=== PATIENT | male | born 1955 | race Caucasian/White ===

== ENCOUNTER → 2017-08-25 | Outpatient (CLI) | payer OTHER ==
--- NOTE | 2017-08-25 11:53 | RAD ---
Left knee, 3 views, 08/25/2017: History: Knee pain, injury No fracture or dislocation is identified. There is mild spurring at the patellofemoral articulation. No joint effusion is evident. IMPRESSION: No acute bony abnormality is detected.
== END | disposition home or self-care (01) ==
LOC: DXRADRC 10:47
PROVIDERS: ATTEND Physician Assistant Medical
DX: M25.562 Pain in left knee (principal); M25.862 Other specified joint disorders, left knee
CPT/HCPCS: 73562

== ENCOUNTER → 2019-02-15 | Outpatient (CLI) | payer OTHER ==
[~2019-02-15] MED LIST: IOHEXOL 240 MG/ML 50ML VIAL. ONE; IOHEXOL 300 MG/ML 75 ML VIAL. IV ONE
[2019-02-15 08:36] LABS: CREATININE 0.9 mg/dL (0.7-1.3); GFR 85.8
--- NOTE | 2019-02-15 12:34 | RAD ---
PQRS Compliance Statement: One or more of the following individualized dose reduction techniques were utilized for this examination: 1. Automated exposure control 2. Adjustment of the mA and/or kV according to patient size 3. Use of iterative reconstruction technique CT ABD PELV W/ORAL IV CONTRAST Clinical Indication: RLQ ABD PAIN X SEVERAL MONTHS. HX HERNIA. Recent colonoscopy. Comparison: None. Technique: Helical CT imaging of the abdomen and pelvis is performed after 75 cc of Omnipaque 300 IV contrast. Oral contrast also given. Findings: Respiratory motion artifact. Lung bases are clear. Median sternotomy wires. Calcified right hilar lymph nodes. Cardiac size normal. There are a couple of calcified granulomas in the spleen. Cholecystectomy. There is fatty infiltration of the liver. There is a 6 mm hypodensity in segment 4A, too small to further characterize. Pancreas, adrenal glands, and abdominal aorta caliber are normal. There is a 9 mm calculus in the lower pole of the left kidney. There is no left hydronephrosis. There is a faint hyperdensity at the left ureteropelvic junction, coronal image 43. Finding could be a tiny calculus on the order 1-2 mm in size. There are approximately 3 nonobstructing calculi in the lower pole the right kidney, largest measures 6 mm. There is moderate right hydronephrosis secondary to a 13 x 8 mm calculus at the ureteropelvic junction, coronal image 44. There is no ureteral calculus. Stomach unremarkable. No dilated small bowel. Severe distal colon diverticulosis. There is no colon wall thickening. The appendix is normal. No colon wall thickening is identified. There is no abdominal adenopathy or free fluid. Urinary bladder is normal. Prostate and seminal vesicles are normal. No pelvic free fluid. Degenerative spondylosis of the thoracolumbar spine. There are large bridging endplate spurs at multiple levels, most exuberant anteriorly at L1-L2. IMPRESSION: 1. Moderate right hydronephrosis likely secondary to a 13 x 8 mm calculus at the ureteropelvic junction. 2. There is a faint hyperdensity at the left ureteropelvic junction that may be a tiny calculus. There is no left hydronephrosis. 3. Bilateral nonobstructing renal calculi. 4. Fatty infiltration of the liver. 5. Severe distal colon diverticulosis without diverticulitis. Electronically signed by: David Desai MD (02/15/2019 12:32 PM) [id number]
== END | disposition home or self-care (01) ==
LOC: CT 07:57
PROVIDERS: ATTEND Internal Medicine Gastroenterology
DX: K57.30 Diverticulosis of large intestine without perforation or abscess without bleeding (principal); K76.0 Fatty (change of) liver, not elsewhere classified; N13.2 Hydronephrosis with renal and ureteral calculous obstruction; D73.89 Other diseases of spleen; M47.815 Spondylosis without myelopathy or radiculopathy, thoracolumbar region; M46.06 Spinal enthesopathy, lumbar region; Z90.49 Acquired absence of other specified parts of digestive tract
CPT/HCPCS: 36415; 74177; 82565; 84520; Q9967

== ENCOUNTER → 2019-02-21 | Outpatient (CLI) | payer OTHER ==
--- NOTE | 2019-02-21 09:31 | CARD ---
MR#: [id number] Date of Study: 02/21/2019 Ordering Physician: EVIE PRICE, Referring Physician: EVIE PRICE, Tech: Donna Resendiz JENNIFER APPROVED REPORT EXAM: Two-dimensional and M-mode echocardiogram with Doppler and color Doppler. Other Information Quality : Technically LimitedHR: 70bpm Rhythm : NSRTechnically limited study due to body habitus. INDICATION CAD 2D DIMENSIONS RVDd3.5 (2.9-3.5cm)Left Atrium(2D)4.6 (1.6-4.0cm) IVSd1.5 (0.7-1.1cm)Aortic Root(2D)3.6 (2.0-3.7cm) LVDd4.3 (3.9-5.9cm)LVOT Diameter2.6 (1.8-2.4cm) PWd1.3 (0.7-1.1cm)LVDs3.1 (2.5-4.0cm) FS (%) 27.7 %SV45.6 ml LVEF(%)54.1 (>50%) Aortic Valve AoV Peak Srinath.146.9cm/sAoV VTI29.1cm AO Peak GR.8.6mmHgLVOT Peak Srinath.112.9cm/s LVOT VTI 26.80cmAO Mean GR.6mmHg HARVEY (VMAX)3.35bl4DEY (VTI)4.00cm2 Mitral Valve MV E Qflxhqrh26.3cm/sMV DECEL QTBC978xy MV A Cuwowtii50.9cm/sE/A Ratio0.8 MV A Esvjsaxz923au Pulmonary Valve PV Peak Eezghzag210.2cm/sPV Peak Grad.6mmHg Tricuspid Valve TR P. Ckllwudb793qa/sRAP SBPQTUYF2lxIr TR Peak Gr.39vkFkGQHM30eoAc LEFT VENTRICLE The left ventricle is normal size. There is mild to moderate concentric left ventricular hypertrophy. The left ventricular systolic function is normal. The Ejection Fraction is 55-60%. There is normal L V segmental wall motion. Transmitral Doppler flow pattern is Grade I-abnormal relaxation pattern. RIGHT VENTRICLE The right ventricle is normal size. There is normal right ventricular wall thickness. The right ventr icular systolic function is normal. ATRIA The left atrium is mildly dilated. The right atrium size is normal. The interatrial septum is intact with no evidence for an atrial septal defect or patent foramen ovale as noted on 2-D or Doppler imagi ng. AORTIC VALVE The aortic valve is normal in structure and function. The aortic valve is trileaflet. Doppler and Col or Flow revealed no significant aortic regurgitation. There is no significant aortic valvular stenosi s. There is no aortic valvular vegetation. MITRAL VALVE The mitral valve is normal in structure and function. There is no evidence of mitral valve prolapse. There is no mitral valve stenosis. Doppler and Color Flow revealed no mitral valve regurgitation note d. TRICUSPID VALVE The tricuspid valve is normal in structure and function. Doppler and Color Flow revealed trace tricus pid regurgitation. The PA pressure was estimated at 30 mmHg. There is no tricuspid valve prolapse or vegetation. There is no tricuspid valve stenosis. PULMONIC VALVE The pulmonic valve is not well visualized. GREAT VESSELS The aortic root is normal in size. The ascending aorta is normal in size. The IVC was not visualized. PERICARDIAL EFFUSION There is no evidence of significant pericardial effusion. Critical Notification Critical Value: No <Conclusion> The left ventricular systolic function is normal. The Ejection Fraction is 55-60%. There is normal LV segmental wall motion. Transmitral Doppler flow pattern is Grade I-abnormal relaxation pattern. Trace tricuspid regurgitation. The PA pressure was estimated at 30 mmHg. There is no evidence of significant pericardial effusion. Signed by : Martell Aquino, Electronically Approved : 02/21/2019 09:30:47
== END | disposition home or self-care (01) ==
LOC: ECHO 08:36
PROVIDERS: ATTEND Internal Medicine Cardiovascular Disease
DX: I25.10 Atherosclerotic heart disease of native coronary artery without angina pectoris (principal); I51.7 Cardiomegaly
CPT/HCPCS: 93306

== ENCOUNTER 2020-02-11 11:08 | Emergency (ER) | payer OTHER ==
[~2020-02-11] VITALS: Ht 175.3 cm; Wt 130.0 kg
[2020-02-11 11:15] VITALS: BP 148/64
[2020-02-11] MEDS ORDERED: MORPHINE SULFATE 4 MG/ML DISP.SYRIN. IM ONE (11:45)
--- NOTE | 2020-02-11 12:10 | RAD ---
Two-view lumbar spine and 3 views sacrum coccyx dated 02/11/2020. Comparison made to CT dated 02/15/2019. CLINICAL INDICATION: Pain after fall. FINDINGS: Flexion extension lateral views of the lumbar spine show normal sagittal alignment. No listhesis on the flexion-extension views. Moderate endplate hypertrophic changes throughout with multilevel disc space narrowing and anterior osteophyte formation. There are sclerotic change at the L2 vertebral body anteriorly, unchanged. Moderate arthrosis lower lumbar apophyseal joints. 3 view sacrum coccyx show normal bony alignment. No displaced fracture. Mild hypertrophic change of the bilateral SI joint without erosive changes or bone destruction. Mild degenerative change of the pubic symphysis. No definite fracture of the coccygeal tip. IMPRESSION: 1. No evidence of fracture or malalignment. 2. Moderate multilevel lumbar spondylosis. No evidence of listhesis on the flexion-extension views. Electronically signed by: Rodney Amin MD (02/11/2020 12:06 PM) [facility] [place]
[2020-02-11] MEDS ORDERED: HYDR-3165 PO (12:27)
--- NOTE | 2020-02-11 12:28 | PHYS DOC ---
Past History Past Medical History: CAD, Diabetes Past Surgical History: Cholecystectomy, Coronary Bypass Surgery Alcohol Use: Occasionally General Adult EDM: Chief Complaint: BACK PAIN OR INJURY HPI: HPI: Patient is a 64-year-old male who presented to ER today for evaluation of low back pain. Patient was trying to move a ladder yesterday, lost his balance and fell down on his buttock. Patient denies any head or neck injury, denies any bowel or bladder incontinence. Patient has history of low back problem. Patient said he could not sleep last night due to pain in his back and his tailbone area so he came here for evaluation. Review of Systems: Review of Systems: Constitutional: Denies fever or chills Eyes: Denies change in visual acuity HENT: Denies nasal congestion or sore throat Respiratory: Denies cough or shortness of breath Cardiovascular: Denies chest pain or edema GI: Denies abdominal pain, nausea, vomiting, bloody stools or diarrhea : Denies dysuria Musculoskeletal: Positive for lower back pain, no joint pain Integument: Denies rash Neurologic: Denies headache, focal weakness or sensory changes Endocrine: Denies polyuria or polydipsia Lymphatic: Denies swollen glands Psychiatric: Denies depression or anxiety Heart Score: Risk Factors: Risk Factors: DM, Current or recent (<one month) smoker, HTN, HLP, family history of CAD, obesity. Risk Scores: Score 0 - 3: 2.5% MACE over next 6 weeks - Discharge Home Score 4 - 6: 20.3% MACE over next 6 weeks - Admit for Clinical Observation Score 7 - 10: 72.7% MACE over next 6 weeks - Early Invasive Strategies Current Medications: Current Meds: Current Medications Medications (Trade) Dose Ordered Sig/[facility] Start Time Stop Time Status Last Admin Dose Admin Morphine Sulfate (Morphine 4mg Syringe) 4 mg 1X ONCE 02/11/20 11:45 02/11/20 11:46 DC 02/11/20 11:43 4 MG Allergies: Allergies: Allergies Coded Allergies Type Severity Reaction Last Updated Verified No Known Drug Allergies 02/15/19 No Physical Exam: PE: Constitutional: Well developed, well nourished, no acute distress, non-toxic appearance. [] HENT: Normocephalic, atraumatic, bilateral external ears normal, oropharynx moist, no oral exudates, nose normal. [] Eyes: PERRLA, EOMI, conjunctiva normal, no discharge. [] Neck: Normal range of motion, no tenderness, supple, no stridor. [] Cardiovascular:Heart rate regular rhythm, no murmur [] Lungs & Thorax: Bilateral breath sounds clear to auscultation [] Abdomen: Bowel sounds normal, soft, no tenderness, no masses, no pulsatile masses. [] Skin: Warm, dry, no erythema, no rash. [] Back: There is tenderness to palpation in the coccyx area and at L5/S1 AREA, NO BONY STEP OFF. no CVA tenderness. [] Extremities: No tenderness, no cyanosis, no clubbing, ROM intact, no edema. [] Neurologic: Alert and oriented X 3, normal motor function, normal sensory function, no focal deficits noted. [] Psychologic: Affect normal, judgement normal, mood normal. [] Current Patient Data: Vital Signs: Vital Signs Date Time Temp Pulse Resp B/P (MAP) Pulse Ox O2 Delivery O2 Flow Rate FiO2 02/11/20 11:43 16 98 Room Air 02/11/20 11:15 98.5 69 148/64 (92) EKG: EKG: [] Radiology/Procedures: Radiology/Procedures: [][place] [address] IMAGING REPORT Signed PATIENT: ILDA PERAZA ACCOUNT: [id number] : 1955 LOCATION: ER AGE: 64 SEX: M EXAM STATUS: REG ER ORD. PHYSICIAN: ARIK CHANEL DO REASON: FELL , TAILBONE PAIN PROCEDURE: SACRUM & COCCYX 3V Two-view lumbar spine and 3 views sacrum coccyx dated 02/11/2020. Comparison made to CT dated 02/15/2019. CLINICAL INDICATION: Pain after fall. FINDINGS: Flexion extension lateral views of the lumbar spine show normal sagittal alignment. No listhesis on the flexion-extension views. Moderate endplate hypertrophic changes throughout with multilevel disc space narrowing and anterior osteophyte formation. There are sclerotic change at the L2 vertebral body anteriorly, unchanged. Moderate arthrosis lower lumbar apophyseal joints. 3 view sacrum coccyx show normal bony alignment. No displaced fracture. Mild hypertrophic change of the bilateral SI joint without erosive changes or bone destruction. Mild degenerative change of the pubic symphysis. No definite fracture of the coccygeal tip. IMPRESSION: 1. No evidence of fracture or malalignment. 2. Moderate multilevel lumbar spondylosis. No evidence of listhesis on the flexion-extension views. Electronically signed by: Rodney Amin MD (02/11/2020 12:06 PM) [facility] [place] DICTATED AND SIGNED BY: RODNEY AMIN MD DATE: 02/11/20 1207 CC: ARIK CHANEL DO; ROBERT JAMES ~ Course & Med Decision Making: Course & Med Decision Making Pertinent Labs and Imaging studies reviewed. (See chart for details) [] Dragbelkys Disclaimer: Jarad Disclaimer: This electronic medical record was generated, in whole or in part, using a voice recognition dictation system. Departure Departure: Impression: Primary Impression: Back pain Additional Impression: Coccyx contusion Disposition: HOME, SELF-CARE Condition: STABLE Referrals: ROBERT JAMES (PCP) follow up with your doctor next week Patient Instructions: Back Pain, Adult, Tailbone Injury, Vvrh-jw-Flfo Scripts Cyclobenzaprine Hcl (CYCLOBENZAPRINE HCL) 10 Mg Tablet 1 TAB PO TID for muscle spasm, #15 TAB Prov: ARIK CHANEL DO 02/11/20 Hydrocodone Bit/Acetaminophen (NORCO 5-325 TABLET) 1 Each Tablet 1 TAB PO PRN Q6HRS PRN for PAIN, #15 TAB 0 Refills Prov: ARIK CHANEL DO 02/11/20 ARIK CHANEL DO Feb 11, 2020 12:28
[2020-02-11] MEDS ORDERED: CYCL-331 PO (12:33)
== END 2020-02-11 12:36 | disposition home or self-care (01) ==
LOC: ER 11:08
DX: S30.0XXA Contusion of lower back and pelvis, initial encounter (principal); I25.810 Atherosclerosis of coronary artery bypass graft(s) without angina pectoris; E11.9 Type 2 diabetes mellitus without complications; Z90.49 Acquired absence of other specified parts of digestive tract; W18.39XA Other fall on same level, initial encounter; Y93.89 Activity, other specified; Y92.89 Other specified places as the place of occurrence of the external cause; Y99.8 Other external cause status
CPT/HCPCS: 72100; 72220; 96372; 99284; J2270

== ENCOUNTER → 2020-03-25 | Outpatient (CLI) | payer OTHER ==
[~2020-03-25] MED LIST changes: +CYCL-331 PO; +HYDR-3165 PO; -IOHEXOL 240 MG/ML 50ML VIAL. ONE; -IOHEXOL 300 MG/ML 75 ML VIAL. IV ONE
== END | disposition home or self-care (01) ==
LOC: LAB 10:50
PROVIDERS: ATTEND Urology
DX: Z11.59 Encounter for screening for other viral diseases (principal)
CPT/HCPCS: C9803; U0003

== ENCOUNTER → 2020-04-11 | Outpatient (CLI) | payer OTHER | END | disposition home or self-care (01) | LOC: LAB 14:55 | PROVIDERS: ATTEND Urology | DX: Z01.818 Encounter for other preprocedural examination (principal); Z11.59 Encounter for screening for other viral diseases; N20.0 Calculus of kidney | CPT/HCPCS: C9803; U0003; 87426 ==

== ENCOUNTER → 2020-06-11 | Outpatient (CLI) | payer OTHER ==
--- NOTE | 2020-06-11 15:31 | RAD ---
EXAM: CT ABDOMEN/PELVIS WITHOUT CONTRAST. HISTORY: Right flank pain. TECHNIQUE: Computed tomography of the abdomen and pelvis was performed without intravenous contrast. One or more of the following individualized dose reduction techniques were utilized for this examination: 1. Automated exposure control. 2. Adjustment of the mA and/or kV according to patient size. 3. Use of iterative reconstruction technique. COMPARISON: 02/15/2019. FINDINGS: Lung windows through the visualized portions of the bases reveal mild atelectasis. Bone windows reveal vertebroplasty changes at a moderate compression deformity at L3. There is ankylosis throughout the lower thoracic spine. Central canal stenosis appears moderate at L3-L5. Right hemilaminotomy changes are noted at L5. The dome of the liver is partially excluded. The liver appears mildly enlarged without focal lesions. There is a calcified granuloma in the spleen. A fat density nodule in the right adrenal gland measures 1.4 cm and is consistent with a benign myelolipoma. The pancreas is unremarkable. The gallbladder is surgically absent. There are no pathologically enlarged lymph nodes. Sigmoid diverticulosis is moderate to severe. Portions of the abdominal cavity are excluded on the left greater than right given habitus. Regions of the colon are not included but no abnormality is seen. There is no small bowel obstruction. The appendix is partially visualized but does not appear inflamed. A calculus at the left renal lower pole measures 8 x 6 mm. No right renal or bilateral ureteral calculi are seen. There is no hydronephrosis. There are no suspicious renal lesions without contrast. IMPRESSION: 1. No ureteral calculi or hydronephrosis. 8 mm left lower pole renal calculus. 2. An L3 compression deformity status post vertebroplasty appears to have some residual open fracture lines. Correlate for this as a cause of symptoms. Moderate central canal stenosis from L3 through L5. 3. 1.4 cm benign right adrenal myelolipoma. Electronically signed by: Ruby Mathews MD (06/11/2020 3:28 PM) [id number]
== END | disposition home or self-care (01) ==
LOC: CT 13:04
PROVIDERS: ATTEND Urology
DX: K57.30 Diverticulosis of large intestine without perforation or abscess without bleeding (principal); N20.0 Calculus of kidney; D35.01 Benign neoplasm of right adrenal gland; M43.8X6 Other specified deforming dorsopathies, lumbar region; M43.24 Fusion of spine, thoracic region; M48.061 Spinal stenosis, lumbar region without neurogenic claudication; R16.0 Hepatomegaly, not elsewhere classified; Z90.49 Acquired absence of other specified parts of digestive tract
CPT/HCPCS: 74176

== ENCOUNTER → 2020-07-25 | Outpatient (CLI) | payer OTHER ==
--- NOTE | 2020-07-25 13:39 | RAD ---
EXAM: DUAL ENERGY X-RAY ABSORPTIOMETRY (DEXA). HISTORY: L3 compression fracture. FINDINGS: The lowest measured T-score is -0.4 in the right total femur, based on a bone mineral density of 0.997 g/cm^2. Refer to the worksheets for full detail. No comparison examinations are available. IMPRESSION: Normal. Bone mineral density yields a T-score of -1.0 or greater. Fracture risk is low. FRAX was not calculated. METHODOLOGY: Dual energy x-ray absorptiometry was performed to measure bone mineral density. The following analysis is based on the 2019 Official Positions of the International Society for Clinical Densitometry: Measurements of the hips and the average of L1-L4 are preferred. When the spine and/or hip cannot be feasibly measured or interpreted, or in the setting of hyperparathyroidism, distal radial bone mineral density may be measured. The lumbar spine T-score is based on the average bone mineral density of L1-L4. In the setting of artifact or anatomic abnormality, some lumbar levels may be excluded, and the remaining levels used for calculation. A single lumbar level is not used for diagnosis, and if only a single level is available for assessment, another anatomic site will be used to assign a diagnosis. The hip T-score is based on the bone mineral density measurement of the femoral neck or total proximal femur of either side, whichever is lowest. Bilateral mean values are not used for diagnosis. The forearm T-score is derived from 33% of the distal radius of the nondominant forearm. For postmenopausal and perimenopausal women, and men age 50 or older, of all ethnic groups, T-scores are calculated through comparison of the current measurement with the NHANES III database standard for females aged 20-29 years. The lowest T-score of the evaluated anatomic sites is used to assign a diagnosis based on the World Health Organization densitometric classification. In premenopausal females and males younger than age 50, a Z-score is calculated based on population specific reference data for patient sex and self-reported ethnicity. Electronically signed by: Ruby Mathews MD (07/25/2020 1:36 PM) [id number]
== END | disposition home or self-care (01) ==
LOC: DXRAD 10:57
PROVIDERS: ATTEND Physician Assistant Medical
DX: M85.839 Other specified disorders of bone density and structure, unspecified forearm (principal); Z87.81 Personal history of (healed) traumatic fracture
CPT/HCPCS: 77080

== ENCOUNTER → 2021-03-04 | Outpatient (CLI) | payer OTHER ==
--- NOTE | 2021-03-04 12:06 | CARD ---
MR#: [id number] Date of Study: 03/04/2021 Ordering Physician: EVIE PRICE, Referring Physician: EVIE PRICE, Tech: Tamie Smith JENNIFER APPROVED REPORT EXAM: Two-dimensional and M-mode echocardiogram with Doppler and color Doppler. Other Information Quality : Good Technically limited study due to body habitus. INDICATION Cardiac Disease: CAD Surgery/Intervention CABG: Date: 08/2011 2D DIMENSIONS RVDd3.4 (2.9-3.5cm)Left Atrium(2D)3.7 (1.6-4.0cm) IVSd1.2 (0.7-1.1cm)Aortic Root(2D)3.4 (2.0-3.7cm) LVDd4.8 (3.9-5.9cm)LVOT Diameter2.1 (1.8-2.4cm) PWd1.2 (0.7-1.1cm)LVDs2.6 (2.5-4.0cm) FS (%) 30.0 %SV82.8 ml LVEF(%)60.0 (>50%) Aortic Valve AoV Peak Srinath.147.5cm/sAoV VTI29.4cm AO Peak GR.8.7mmHgLVOT Peak Srinath.106.7cm/s LVOT VTI 24.57cmAO Mean GR.5mmHg HARVEY (VMAX)2.80vh9EBW (VTI)2.88cm2 Mitral Valve MV E Rexwbdvk87.6cm/sMV DECEL EMOV394oy MV A Snedgpdg85.0cm/sE/A Ratio1.1 Tricuspid Valve TR P. Oksdbtxm708hj/sRAP QCSTQPRG5asFn TR Peak Gr.23rrSbLYHA53gbUw Pulmonary Vein S1 Oxpdjxxd36.3cm/sD2 Zxjwdzeb45.7cm/s LEFT VENTRICLE The left ventricle is normal size. There is mild concentric left ventricular hypertrophy. The left ve ntricular systolic function is normal and the ejection fraction is within normal range. The Ejection Fraction is 55-60%. There is normal LV segmental wall motion. Transmitral Doppler flow pattern is Gra de I-abnormal relaxation pattern. RIGHT VENTRICLE The right ventricle is normal size. The right ventricular systolic function is normal. ATRIA The left atrium size is normal. The right atrium size is normal. The interatrial septum is intact wit h no evidence for an atrial septal defect or patent foramen ovale as noted on 2-D or Doppler imaging. AORTIC VALVE The aortic valve is calcified but opens well. Doppler and Color Flow revealed no significant aortic r egurgitation. There is no significant aortic valvular stenosis. MITRAL VALVE The mitral valve is calcified but opens well. There is no evidence of mitral valve prolapse. There is no mitral valve stenosis. Doppler and Color Flow revealed no mitral valve regurgitation noted. TRICUSPID VALVE The tricuspid valve is normal in structure and function. Doppler and Color Flow revealed no tricuspid valve regurgitation noted. There is no tricuspid valve stenosis. PULMONIC VALVE Doppler and Color Flow revealed trace pulmonic valvular regurgitation. There is no pulmonic valvular stenosis. GREAT VESSELS The aortic root is normal in size. The ascending aorta is not well seen. The IVC is normal in size an d collapses >50% with inspiration. PERICARDIAL EFFUSION There is no evidence of significant pericardial effusion. Critical Notification Critical Value: No <Conclusion> The left ventricular systolic function is normal and the ejection fraction is within normal range. Th e Ejection Fraction is 55-60%. There is normal LV segmental wall motion. Signed by : Evie Price, Electronically Approved : 03/04/2021 12:06:19
== END ==
LOC: ECHO 07:39
PROVIDERS: ATTEND Internal Medicine Cardiovascular Disease
DX: I08.0 Rheumatic disorders of both mitral and aortic valves (principal); I25.10 Atherosclerotic heart disease of native coronary artery without angina pectoris
CPT/HCPCS: 93306